=== PATIENT | female | born 1990 | race African-American/Black ===

== ENCOUNTER → 2016-10-28 | Outpatient (CLI) | payer OTHER ==
[~2016-10-28] MED LIST: AZIT250T3 PO; IBUP-232 PO; METR500T10 PO; OXYC1TAB63 PO; PREN1MIS11 PO; SENN1TAB PO
== END ==
LOC: HPND 07:53
PROVIDERS: ATTEND Obstetrics & Gynecology Obstetrics
DX: O35.8XX0 Maternal care for other (suspected) fetal abnormality and damage, not applicable or unspecified (principal)
CPT/HCPCS: 76811

== ENCOUNTER → 2016-12-08 | Outpatient (CLI) | payer OTHER ==
[~2016-12-08] MED LIST changes: -AZIT250T3 PO; -METR500T10 PO
== END ==
LOC: HPND 07:50
PROVIDERS: ATTEND Obstetrics & Gynecology Obstetrics
DX: O99.212 Obesity complicating pregnancy, second trimester (principal); O35.1XX0 Maternal care for (suspected) chromosomal abnormality in fetus, not applicable or unspecified; Z3A.30 30 weeks gestation of pregnancy
CPT/HCPCS: 76816

== ENCOUNTER 2017-01-28 08:55 | Inpatient (IN) | payer OTHER ==
[~2017-01-28] VITALS: Ht 170.2 cm; Wt 132.9 kg
[~2017-01-28 08:55] MED LIST changes: -IBUP-232 PO; -OXYC1TAB63 PO; -SENN1TAB PO
[2017-01-28] MEDS ORDERED: LACTATED RINGER'S 1000 ML INJ 1,000 ML IV PRN (09:33)
[2017-01-28 09:39] VITALS: BP 140/89; PULSE 71
[2017-01-28] MEDS ORDERED: LIDOCAINE HCL 1% 50 ML VIAL INFIL PRN (09:45)
[2017-01-28] MEDS ORDERED: OXYTOCIN 30 UNITS-500ML PREMIX 500 ML IV ONE (09:45)
[2017-01-28] MEDS ORDERED: LIDOCAINE HCL 1% 50 ML VIAL I-DERMAL PRN (09:45)
[2017-01-28] MEDS ORDERED: MINERAL OIL 10 ML VIAL TOPICAL PRN (09:45)
[2017-01-28] MEDS ORDERED: SODIUM CHLORID 0.9% 500 ML INJ 500 ML IV PRN (09:45)
[2017-01-28] MEDS ORDERED: CITRIC ACID-SODIUM CITRATE LIQ 30 ML UDC PO SCH (09:45)
[2017-01-28] MEDS ORDERED: ONDANSETRON HCL 4 MG/2 ML VIAL IV PRN (09:45)
[2017-01-28] MEDS ORDERED: SODIUM CHLOR 0.9% 1000 ML INJ 1,000 ML IV PRN (09:53)
[2017-01-28 09:54] LABS: AUTOMATED NEUTROPHIL # 3.1 TH/MM3 (1.8-7.7); BASOPHIL # 0.1 TH/MM3 (0-0.2); BASOPHIL % 1.1 % (0.0-2.0); EOSINOPHIL % 0.7 % (0.0-4.0); HEMATOCRIT 37.3 % (35.0-46.0); HEMO FLAGS DIFF FINAL; LYMPH % 37.1 % (9.0-44.0); LYMPHOCYTE # 2.1 TH/MM3 (1.0-4.8); MEAN CELL VOLUME 87.5 FL (80.0-100.0); MEAN CORPUSCULAR HEMOGLOBIN 30.1 PG (27.0-34.0); MEAN CORPUSCULAR HGB CONC 34.4 % (32.0-36.0); MONO % 6.7 % (0.0-8.0); NEUT % 54.4 % (16.0-70.0); PLATELET COUNT 185 TH/MM3 (150-450); RED BLOOD COUNT 4.27 MIL/MM3 (4.00-5.30); RED CELL DISTRIBUTION WIDTH 13.4 % (11.6-17.2); WHITE BLOOD COUNT 5.7 TH/MM3 (4.0-11.0)
[2017-01-28] MEDS ORDERED: PENICILLIN G POTASSIUM INJ 5,000,000 UNITS in SODIUM CHLORIDE 0.9% INJ 100 ML IV ONE (10:00)
[2017-01-28 10:01] LABS: BACTERIA, URINE OCC /hpf; BLOOD, URINE NEG (NEG); COMMENT (UR) CULT NOT INDICATED; CULTURE IF INDICATED CULT NOT INDICATED; GLUCOSE,URINE NEG (NEG); KETONE, URINE NEG (NEG); NITRITE,URINE NEG (NEG); PH, URINE 6.5 (5.0-8.5); SQUAMOUS EPITHELIAL CELL URINE 1 /hpf (0-5); URINE COLOR YELLOW (YELLW/STRAW)
--- NOTE | 2017-01-28 10:40 | HHI.HP ---
HPI Chief Complaint Low ESSIE Date Seen: Jan 28, 2017 Travel History International Travel<30 Days: No Contact w/Intl Traveler<30Days: No Known Affected Area: No History of Present Illness HPI Patient is a 26-year-old at 37/3 weeks gestation that presents to the [place] [facility] for low ESSIE. [facility] Today , she states that she is doing well and has no complaints. She denies fever, chills, nausea, vomiting, diarrhea, abdominal pain, shortness of breath. She has had some burning chest pain that is worse when she lies flat and better when she lies upright but not worse with exertion. Patient denies loss of fluid , vaginal bleeding, abnormal vaginal discharge, endorses positive movements. Notably, she is GBS positive. All other labs were negative or within normal limits. Para: 0 : 1 Miscarriage: 0 : 0 History Past Medical History Medical History: Denies Significant Hx Obstetric History Obstetric History Past Surgical History Surgical History: No Previous Surgery Family History Narrative Family History Maternal grandmother has diabetes Social History Alcohol Use: No Tobacco Use: No Substance Abuse: No Allergies-Medications (Allergen,Severity, Reaction): Coded Allergies: No Known Allergies (Verified , 01/27/17) Home Meds Active Scripts W/O Vit A W/ Fe Carbo Pack (Citranatal 90 Dha Pack)90-1 & 300 Mg Pack1 Ea PO DAILY #60 BLISTER Ref 11 30 day supply. Prov:Akilah Shultz 09/23/16 Review of Systems General / Constitutional: No: Fever, Chills HENT: No: Headaches Cardiovascular: Chest Pain or Discomfort (most likely reflux) Respiratory: No: Cough, Short of Breath Gastrointestinal: No: Nausea, Vomiting, Diarrhea, Abdominal Pain Genitourinary: No: Dysuria, Discharge, Vaginal Bleeding Musculoskeletal: No: Weakness Physical Exam Vital Signs Date Time Temp Pulse Resp B/P Pulse Ox O2 Delivery O2 Flow Rate FiO2 01/28/17 09:39 71 140/89 Narrative GENERAL: Well-nourished, well-developed patient. SKIN: Warm and dry. HEAD: Normocephalic and atraumatic. EYES: No scleral icterus. No injection or drainage. ENT: No nasal drainage noted. Mucous membranes pink. Airway patent. NECK: Supple, trachea midline. No JVD. CARDIOVASCULAR: Regular rate and rhythm without murmurs, gallops, or rubs. RESPIRATORY: Breath sounds equal bilaterally. No accessory muscle use. BREASTS: Bilateral exam showed no masses , no retractions, no nipple discharge. ABDOMEN/GI: Abdomen soft, non-tender, bowel sounds present, no rebound, no guarding Gravid to 37 weeks size Fundal Height: 37cm GENITOURINARY: External Genitalia: intact and normal in appearance Cervix: Posterior and high Dilatation: <1cm Effacement: 20% Station: -3 Presentation: Cephalic Membranes: [intact or ruptured] Uterine Contractions: [-] FHT's: Category: 1 Baseline: 145 Reactive: Up to 155 Variability: Moderate Decels: None EXTREMITIES: No cyanosis, minimal edema. BACK: Nontender without obvious deformity. No CVA tenderness. NEUROLOGICAL: Awake and alert. Motor and sensory grossly within normal limits. Five out of 5 muscle strength in all muscle groups. Normal speech. Data Data Vital Signs Reviewed: Yes Orders Admit To Inpatient (01/28/17 ) Code Status (01/28/17 09:33) Vital Signs (Adult) .Per protocol (01/28/17 09:33) ^ Heart (01/28/17 09:33) ^ Amnioinfusion (01/28/17 09:33) Urinary Catheter Management .ONCE (01/28/17 09:33) Lactated Ringer's 1000 Ml Inj (Lr 1000 M (01/28/17 09:33) Lactated Ringer's 1000 Ml Inj (Lr 1000 M (01/28/17 09:33) Sodium Chlorid 0.9% 500 Ml Inj (Ns 500 M (01/28/17 09:45) Sodium Chlor 0.9% 1000 Ml Inj (Ns 1000 M (01/28/17 09:53) Lidocaine 1% Inj (50 Ml) (Xylocaine 1% I (01/28/17 09:45) Citric Acid-Sodium Citrate Liq (Bicitra (01/28/17 09:45) Ondansetron Inj (Zofran Inj) (01/28/17 09:45) Fentanyl Inj (Fentanyl Inj) (01/28/17 09:45) Fentanyl Inj (Fentanyl Inj) (01/28/17 09:45) Penicillin G Potassium Inj (Pfizerpen-G (01/28/17 10:00) Penicillin G Potassium Inj (Pfizerpen-G (01/28/17 14:00) Complete Blood Count With Diff (01/28/17 09:33) Hold Clot (01/28/17 09:33) Abo/Rh Blood Type (01/28/17 09:33) Urinalysis - C+S If Indicated (01/28/17 09:33) Resp Oxygen Non Rebreathe Mask (01/28/17 ) ^ Epidural / Intrathecal Infus (01/28/17 09:33) Oxytocin 30 Units-500ml Premix (Pitocin (01/28/17 09:45) Lidocaine 1% Inj (50 Ml) (Xylocaine 1% I (01/28/17 09:45) Light Mineral Oil (Muri-Lube Oil) (01/28/17 09:45) Inpatient Certification (01/28/17 ) Specimen To Be Collected PRN (01/28/17 09:33) Diet Clear Liquid (01/28/17 Breakfast) Labs Laboratory Tests Test 01/28/17 01/28/17 09:10 09:25 Urine Color YELLOW Urine Turbidity CLEAR Urine pH 6.5 Urine Specific [place] 1.006 Urine Protein NEG Urine Glucose (UA) NEG Urine Ketones NEG Urine Occult Blood NEG Urine Nitrite NEG Urine Bilirubin NEG Urine Urobilinogen LESS THAN 2.0 Urine Leukocyte Esterase LARGE Urine RBC 1 Urine WBC 5 Urine Squamous Epithelial 1 Cells Urine Bacteria OCC Microscopic Urinalysis Comment CULT NOT INDICATED White Blood Count 5.7 Red Blood Count 4.27 Hemoglobin 12.8 Hematocrit 37.3 Mean Corpuscular Volume 87.5 Mean Corpuscular Hemoglobin 30.1 Mean Corpuscular Hemoglobin 34.4 Concent Red Cell Distribution Width 13.4 Platelet Count 185 Mean Platelet Volume 9.4 Neutrophils (%) (Auto) 54.4 Lymphocytes (%) (Auto) 37.1 Monocytes (%) (Auto) 6.7 Eosinophils (%) (Auto) 0.7 Basophils (%) (Auto) 1.1 Neutrophils # (Auto) 3.1 Lymphocytes # (Auto) 2.1 Monocytes # (Auto) 0.4 Eosinophils # (Auto) 0.0 Basophils # (Auto) 0.1 CBC Comment DIFF FINAL Differential Comment Blood Type O POSITIVE Blood Bank Comment Band and Hold Assessment/Plan Assessment and Plan 26-year-old at 37/3 weeks gestation, GBS positive -Intrauterine - tracing category 1, reassuring -Admit to L&D for induction due to low ESSIE -Plan for vaginal delivery -Rangel score of 0 -Cervical ripening with either Cytotec or Cervidil Discharge Planning -Pending induction progress Marilee Delgadillo MD R1 Jan 28, 2017 10:40
--- NOTE | 2017-01-28 12:53 | HHI.HP ---
History & Physical H&P This patient is 26-year-old black female [facility] and sent here for induction for low amniotic fluid volume, she has no complaints problems. heart rate tracing is reactive and occasional contractions are noted. ESSIE was 3.8 maternal medicine recommended induction, biophysical profile was 8 of 10 Exam- cervix is fingertip to closed /50% -3 / vtx an ultrasound done yesterday shows the baby in a cephalic presentation Impressions oligohydramnios at 37-1/2 weeks with the maternal medicine recommendation for delivery. Plan is proceed with cervical ripening and then labor induction. Kenneth Thibodeaux II, MD Jan 28, 2017 12:53
[2017-01-28] MEDS: LACTATED RINGER'S 1000 ML INJ 1,000 ML IV SCH ×2 (13:13→17:33)
[2017-01-28] MEDS: MISOPROSTOL 25 MCG SUPP VAGINAL SCH ×3 (13:13→21:00)
[2017-01-28] MEDS ORDERED: PENICILLIN G POTASSIUM INJ 2,500,000 UNITS in SODIUM CHLORIDE 0.9% INJ 100 ML IV SCH (14:00)
[2017-01-29] VITALS (59 sets, daily range): BP systolic 104–177; BP diastolic 54–136; PULSE 50–129; RESP 18; TEMP 97.3–98; O2SAT 97–99
[2017-01-29] MEDS: MISOPROSTOL 25 MCG SUPP VAGINAL SCH ×2 (01:00→05:00)
[2017-01-29] MEDS: DICLOFENAC SODIUM 37.5 MG/ML VIAL IV PUSH SCH (01:30)
[2017-01-29] MEDS ORDERED: PENICILLIN G POTASSIUM INJ 5,000,000 UNITS in SODIUM CHLORIDE 0.9% INJ 100 ML IV ONE (07:45)
[2017-01-29] MEDS: OXYTOCIN 30 UNITS-500ML PREMIX 500 ML IV SCH (07:48)
[2017-01-29] MEDS: LACTATED RINGER'S 1000 ML INJ 1,000 ML IV SCH ×2 (10:38→17:33)
--- NOTE | 2017-01-29 10:39 | PD.LABORPN ---
Subjective Subjective Patient afebrile with SBP in 140's- 150's overnight. Patient denies complaints at this time Objective Vital Signs Vital Signs Date Time Temp Pulse Resp B/P Pulse Ox O2 Delivery O2 Flow Rate FiO2 01/29/17 10:01 60 147/76 01/29/17 09:44 54 130/82 01/29/17 09:11 61 150/78 01/29/17 09:01 71 01/29/17 08:44 68 01/29/17 08:42 68 Objective Pelvic Exam: (Dr. Thibodeaux 0830 01/29) Cervix: Dilatation: 2-3 cm Effacement: 60% Station: -3 Presentation: V Membranes: AROM 0830 Uterine Contractions: q2 FHT's: Category: 1 Baseline: 150 Reactive: Y Variability:Mod Decels: None Assessment/Plan Problem List: (1) 37 weeks gestation of Assessment and Plan 26 yo G1 at 37 4/7 weeks brought for induction for low ESSIE per MFM -Cervix 2-3/60%/-3 -s/p ROM at 0830 -Cont GBS PPX -Pitocin started 10-26-29 -Continue Jeremi Moore MD R2 Jan 29, 2017 10:39
[2017-01-29] MEDS: PENICILLIN G POTASSIUM INJ 2,500,000 UNITS in SODIUM CHLORIDE 0.9% INJ 100 ML IV SCH ×3 (11:45→20:00)
[2017-01-29] MEDS ORDERED: diphenhydrAMINE HCL 50 MG/ML VIAL IV PUSH ONE (17:45)
--- NOTE | 2017-01-29 17:45 | PD.LABORPN ---
Subjective Subjective Interval History: Per nursing staff and patient, patient reportedly had episode of hypotension ( BP 106/57) after ambulating to the bathroom. Patient had associated decelerations on FHR to ~90's. Patient was placed in LL position, given NC O2, and amnioinfusion started. Pitocin stopped. Following these interventions, patient had recovery in FHR to 140 bpm. Patient seen after these events, states that she is doing well at this time without complaints. It and states that she felt dizzy at time of hypotension but does not feel dizzy at this time. Objective Vital Signs Vital Signs Date Time Temp Pulse Resp B/P Pulse Ox O2 Delivery O2 Flow Rate FiO2 01/29/17 16:32 58 106/57 01/29/17 16:02 66 138/72 01/29/17 15:45 97.5 01/29/17 15:31 75 158/90 01/29/17 15:18 73 01/29/17 15:12 65 01/29/17 14:40 63 154/75 01/29/17 14:32 83 134/104 01/29/17 14:02 68 155/77 01/29/17 13:47 107 150/94 01/29/17 13:41 97.5 01/29/17 13:40 71 01/29/17 12:46 64 147/83 01/29/17 12:42 63 01/29/17 12:02 61 177/85 01/29/17 11:45 97.5 01/29/17 11:45 18 01/29/17 11:32 69 104/69 01/29/17 11:02 72 135/74 01/29/17 10:46 56 148/98 01/29/17 10:15 97.3 18 01/29/17 10:01 60 147/76 01/29/17 09:44 54 130/82 Objective Pelvic Exam: (1640 by nursing staff) Cervix: Dilatation: 6 Effacement: 80% Station: -2 Presentation: V Membranes: Ruptured Uterine Contractions: q2-6min FHT's: Category: 1 Baseline: 140 Reactive: Y Variability: Mod Decels: None current (last was a late 1.5min decel at ~1700 prior to interventions) Assessment/Plan Problem List: (1) 37 weeks gestation of Assessment and Plan 26 yo G1 at 37 4/7 weeks brought for induction for low ESSIE per MFM -Late deceleration in association w/ hypotensive episode Impression: Suspect vagal etiology; resolved after position change, stopping Pit , O2, Amnioinfusion -Continue to monitor EFM -Cervix 6cm dilation -s/p ROM at 0830 -Cont GBS PPX Jeremi Baeza MD R2 Jan 29, 2017 17:45
[2017-01-29] MEDS ORDERED: fentaNYL 2MCG-BUPIV 0.125% INJ 100 ML ONE (20:31)
[2017-01-29] MEDS ORDERED: ePHEDrine/NS 25 MG/5 ML SYR ONE (20:33)
[2017-01-29] MEDS ORDERED: TERBUTALINE INJ 1 MG/ML AMP ONE (22:20)
[2017-01-29] MEDS ORDERED: OXYTOCIN 10 UNIT/ML AMP ONE (22:35)
[2017-01-29] MEDS ORDERED: EPIDURAL-DO NOT ADMINISTER ANTICOAGULANTS PRN (22:45)
[2017-01-29] MEDS ORDERED: EPIDURAL-NALOXONE HCL 0.4 MG/ML AMP IV PRN (22:45)
[2017-01-29] MEDS ORDERED: EPIDURAL-DIPHENHYDRAMINE HCL 50 MG CAP PO PRN (22:45)
[2017-01-29] MEDS ORDERED: EPIDURAL-NO SYSTEMIC NARCOTICS PRN (22:45)
[2017-01-29] MEDS ORDERED: EPIDURAL-DIPHENHYDRAMINE HCL 50 MG/ML VIAL IV PUSH PRN (22:45)
[2017-01-29] MEDS ORDERED: METHYLERGONOVINE MALEATE 0.2 MG/ML VIAL ONE (22:49)
[2017-01-29] MEDS ORDERED: ONDANSETRON HCL 4 MG/2 ML VIAL ONE (23:00)
[2017-01-29] MEDS ORDERED: DICLOFENAC SODIUM 37.5 MG/ML VIAL IV PUSH ONE (23:00)
[2017-01-29] MEDS ORDERED: MORPHINE SULFATE PF 5 MG/10 ML VIAL ONE (23:00)
[2017-01-29 23:08] LABS: BLOOD GAS BASE EXCESS -6.4 mmol/L (-2-2); BLOOD GAS O2 HGB SATURATION 11 % (90-100); CORD BLOOD GAS HCO3 22 mmol/L (21-29); CORD BLOOD GAS PCO2 80 mmHG (34-78); CORD BLOOD GAS PH 7.08 (7.14-7.42); CORD BLOOD GAS PO2 13 mmHG (3.0-40.0); DRAW SITE CORD BLOOD; STAT YES
--- NOTE | 2017-01-29 23:10 | HHI.PR ---
SA[facility]ER Note Note Patient is 37 weeks gestation who was admitted in labor and received an epidural approximately an hour and a half ago. Patient has had slow progression over the past 4 hours, and experienced severe variable decelerations to 60 the past 3 contractions. heart rate tracing came up to baseline of 140 with moderate variability and patient had bradycardia for 3 minutes. Patient was taken back for an emergency section due to bradycardia. Cervix is 6/50/-3. Koki Greer MD Jan 29, 2017 23:10
--- NOTE | 2017-01-29 23:12 | PD.OB.DELI ---
Procedure Note Section Procedure Pre Op Diagnosis 37 weeks gestation bradycardia Failure to progress Post Op Diagnosis: Performed by Koki Greer Procedure: Primary Low Transverse Sec Indication for delivery: Nonreassuring heart tracing Informed consent obtained: For anesthesia, For procedure Confirmed correct: Time-out taken Anesthesia: Epidural Medication prior to procedure: Antacids, Antibiotics, IV Monitoring during procedure: Blood pressure monitoring, Pulse oximetry Urinary catheter: Inserted using sterile technique Sterile preparation: Duraprep Position: Supine with wedge to left side Operative Features Skin Incision: Pfannenstiel Uterine Incision: Low transverse w/knife / blunt ext Membranes Ruptured: Previously Presentation: Occiput anterior Time of : 22:42 Delivery of infant: Uneventful Infant: Male One Minute : 4 Five Minute : 8 Weight: 2665 g, 5 lbs. 14 oz. Status of infant: Viable, Cord blood Placenta delivered: Intact Estimated blood loss: 600 cc Procedure tolerated: Well Maternal Condition: Stable Condition: Stable Koki Greer MD Jan 29, 2017 23:12
--- NOTE | 2017-01-29 23:34 | RADRPT ---
EXAM DATE/TIME: 01/29/2017 23:02 [facility] COMPARISON: No previous studies available for comparison. INDICATIONS : Post emergent section. MEDICAL HISTORY : None. SURGICAL HISTORY : section. ENCOUNTER: Initial ACUITY: 1 day PAIN SCORE: Non-responsive. LOCATION: Abdomen, lower quadrants. FINDINGS: The bowel gas is nonspecific. There are no signs of obstruction or free air for technique. No defini te calcified stones are identified for technique. There is a wire appearing structure overlapping the patient's lumbar spine at the L2-3 level of uncertain location. CONCLUSION: Nonspecific abdomen with a wire appearing structure as above of uncertain locatio n. K. John Orellana MD on January 29, 2017 at 23:32 Board Certified Radiologist. This report was verified electronically.
[2017-01-30] VITALS (12 sets, daily range): BP systolic 118–151; BP diastolic 66–81; PULSE 61–89; RESP 16–18; TEMP 96.7–98.4; O2SAT 99
[2017-01-30] MEDS ORDERED: OXYTOCIN 30 UNITS-500ML PREMIX 500 ML ONE (00:09)
[2017-01-30] MEDS: OXYTOCIN 30 UNITS-500ML PREMIX 500 ML IV SCH (00:23)
[2017-01-30] MEDS ORDERED: SODIUM CHLORIDE 0.9% FLUSH 10 ML FLUSH IV FLUSH PRN (01:45)
[2017-01-30] MEDS ORDERED: ONDANSETRON HCL 4 MG/2 ML VIAL IV PUSH PRN (01:45)
[2017-01-30] MEDS ORDERED: oxyCODONE/ACETAMINOPHEN 5 MG/325 MG TAB PO PRN (01:45)
[2017-01-30] MEDS ORDERED: SIMETHICONE 80 MG CHEWABLE TAB PO PRN (01:45)
[2017-01-30] MEDS ORDERED: OXYTOCIN 30 UNITS-500ML PREMIX 500 ML IV ONE (01:45)
[2017-01-30] MEDS ORDERED: DOCUSATE SODIUM 50 MG/SENNA 8.6 MG TAB PO PRN (01:45)
[2017-01-30] MEDS ORDERED: LACTATED RINGER'S 1000 ML INJ 1,000 ML IV SCH (06:32)
--- NOTE | 2017-01-30 07:08 | HHI.OB ---
Subjective Post Operative Day: 1 Remarks Ms. Mccray is a 26 yo who is POD1 from [facility] (01/29 at 2242). Ms. Quiñones states that she is doing well at this time. Patient has not yet ambulated. Patient plans to bottle feed. Patient denies dysuria. Patient states that she is passing gas. She reports mild vaginal bleeding. Patient denies shortness of breath or leg swelling. (Jeremi Baeza MD R2) Objective Vitals/I&O Vital Signs Date Time Temp Pulse Resp B/P Pulse Ox O2 Delivery O2 Flow Rate FiO2 01/30/17 01:25 96.7 61 18 01/30/17 01:25 119/74 01/30/17 00:10 18 01/30/17 00:10 99 01/30/17 00:10 84 122/66 01/29/17 23:55 75 18 123/65 99 01/29/17 23:40 18 01/29/17 23:40 82 114/61 99 01/29/17 23:25 18 01/29/17 23:25 80 115/59 97 01/29/17 23:10 86 104/62 01/29/17 23:10 98.0 01/29/17 23:10 18 98 01/29/17 22:16 119 145/92 01/29/17 22:02 18 01/29/17 22:01 61 133/66 01/29/17 21:55 18 01/29/17 21:45 18 01/29/17 21:41 73 117/86 01/29/17 21:21 67 146/65 01/29/17 21:19 18 01/29/17 21:17 56 136/54 01/29/17 21:11 129 117/95 01/29/17 21:02 108 143/79 01/29/17 20:55 80 01/29/17 20:53 97.8 75 18 141/76 01/29/17 20:50 75 01/29/17 20:42 63 173/136 01/29/17 20:31 73 166/79 01/29/17 20:15 18 01/29/17 20:01 56 150/80 01/29/17 19:40 97.8 01/29/17 19:39 18 01/29/17 19:38 61 131/97 01/29/17 19:31 76 160/85 01/29/17 19:01 60 158/82 01/29/17 18:32 56 151/86 01/29/17 18:28 56 01/29/17 18:01 56 142/106 01/29/17 17:45 97.9 01/29/17 17:31 61 145/78 01/29/17 17:02 50 138/76 01/29/17 16:32 58 106/57 01/29/17 16:02 66 138/72 01/29/17 15:45 97.5 01/29/17 15:31 75 158/90 01/29/17 15:18 73 01/29/17 15:12 65 01/29/17 14:40 63 154/75 01/29/17 14:32 83 134/104 01/29/17 14:02 68 155/77 01/29/17 13:47 107 150/94 01/29/17 13:41 97.5 01/29/17 13:40 71 01/29/17 12:46 64 147/83 01/29/17 12:42 63 01/29/17 12:02 61 177/85 01/29/17 11:45 97.5 01/29/17 11:45 18 01/29/17 11:32 69 104/69 01/29/17 11:02 72 135/74 01/29/17 10:46 56 148/98 01/29/17 10:15 97.3 18 01/29/17 10:01 60 147/76 01/29/17 09:44 54 130/82 01/29/17 09:11 61 150/78 01/29/17 09:01 71 01/29/17 08:44 68 01/29/17 08:42 68 (Jeremi Baeza MD R2) Result Diagram: 01/31/17 0605 Objective Remarks GENERAL: Well-nourished, well-developed patient. CARDIOVASCULAR: Regular rate and rhythm without murmurs. Normal rate. RESPIRATORY: Breath sounds equal bilaterally. No accessory muscle use. ABDOMEN/GI: Abdomen soft, non-tender, bowel sounds present. Incision: In dressing, not inspected. Fundus: Firm, non-tender at umbilicus. GENITOURINARY: Light to moderate bleeding. EXTREMITIES: No cyanosis or edema, non-tender, without signs of DVT. Medications and IVs Current Medications Medications (Trade) Dose Ordered Sig/Kevyn Route Start Time Stop Time Status Last Admin (Lr 1000 ml Inj) 1,000 ml @ 100 mls/hr Q10H IV 01/30/17 06:32 01/31/17 02:31 (NS Flush) 2 ml BID IV FLUSH 01/30/17 09:00 (NS Flush) 2 ml UNSCH PRN IV FLUSH 01/30/17 01:45 (Mylicon Chew) 80 mg QID PRN PO 01/30/17 01:45 (Motrin) 600 mg Q6H PRN PO 01/30/17 01:45 (Percocet 5-325 Mg) 1 tab Q4H PRN PO 01/30/17 01:45 (Percocet 5-325 Mg) 2 tab Q4H PRN PO 01/30/17 01:45 (Hannah-Colace) 2 tab Q12H PRN PO 01/30/17 01:45 (M-M-R Ii Inj) 0.5 ml ONCE ONCE SQ 01/31/17 16:00 01/31/17 16:01 (Boostrix Inj) 0.5 ml ONCE ONCE IM 01/31/17 16:00 01/31/17 16:01 (Zofran Inj) 4 mg Q6H PRN IV PUSH 01/30/17 01:45 (Dyloject Inj) 37.5 mg Q8H IV PUSH 01/29/17 23:00 01/30/17 15:01 Miscellaneous Information NO SYSTEMIC NARCOTICS TO BE GIVEN FO... UNSCH PRN .XX 01/29/17 22:45 01/30/17 22:44 (Narcan Inj) 0.4 mg UNSCH PRN IV 01/29/17 22:45 01/30/17 22:44 (Benadryl Inj) 25 mg Q6H PRN IV PUSH 01/29/17 22:45 01/30/17 22:44 (Benadryl) 50 mg Q6H PRN PO 01/29/17 22:45 01/30/17 22:44 Miscellaneous Information ALL NURSING DEPARTMENTS UNSCH PRN .XX 01/29/17 22:45 01/30/17 22:44 (Jeremi Baeza MD R2) Assessment/Plan Problem List: (1) care following delivery Assessment and Plan 26 yo who is POD1 from [facility] (01/29 at 2242) -Continue Percocet/Motrin for pain control -Continue to monitor vital signs, vaginal bleeding -Continue to encourage breast-feeding -Continue stool softener -Continue to encourage ambulation -Advance diet as tolerated -Plan for incision check in 1 week/ follow-up Discharge Planning Anticipate DC in 1 -2 days (Jeremi Baeza MD R2) Collaborating MD Comments Agree with care, patient seen and care discussed with resident. (Koki Greer MD ) Jeremi Baeza MD R2 Jan 30, 2017 07:08 Koki Greer MD Feb 03, 2017 10:47
[2017-01-30] MEDS: DICLOFENAC SODIUM 37.5 MG/ML VIAL IV PUSH SCH ×2 (07:47→15:06)
[2017-01-30] MEDS ORDERED: SODIUM CHLORIDE 0.9% FLUSH 10 ML FLUSH IV FLUSH SCH (09:00)
[2017-01-30] MEDS ORDERED: OXYTOCIN 30 UNITS-500ML PREMIX 500 ML IV PRN (11:45)
[2017-01-31] MEDS: IBUPROFEN 600 MG TAB PO PRN ×4 (01:33→21:05)
[2017-01-31] MEDS: oxyCODONE/ACETAMINOPHEN 5 MG/325 MG TAB PO PRN ×4 (01:36→19:59)
[2017-01-31 06:58] LABS: AUTOMATED NEUTROPHIL # 6.5 TH/MM3 (1.8-7.7); BASOPHIL % 0.3 % (0.0-2.0); EOSINOPHIL # 0.1 TH/MM3 (0-0.4); EOSINOPHIL % 0.8 % (0.0-4.0); HEMATOCRIT 38.2 % (35.0-46.0); HEMO FLAGS DIFF FINAL; LYMPH % 20.8 % (9.0-44.0); LYMPHOCYTE # 1.9 TH/MM3 (1.0-4.8); MEAN CELL VOLUME 89.2 FL (80.0-100.0); MEAN CORPUSCULAR HEMOGLOBIN 29.8 PG (27.0-34.0); MEAN CORPUSCULAR HGB CONC 33.4 % (32.0-36.0); MONO % 6.2 % (0.0-8.0); NEUT % 71.9 % (16.0-70.0); PLATELET COUNT 152 TH/MM3 (150-450); RED BLOOD COUNT 4.29 MIL/MM3 (4.00-5.30); RED CELL DISTRIBUTION WIDTH 13.6 % (11.6-17.2)
[2017-01-31 08:00] VITALS: BP 144/89; PULSE 82; RESP 18
--- NOTE | 2017-01-31 09:12 | HHI.OB ---
Subjective Post Operative Day: 2 Remarks Ms. Mccray is a 26 yo who is POD2 from [facility] (01/29 at 2242). Ms. Quiñones states that she is doing well at this time. Patient has been ambulating some. Patient has been bottle feeding her infant. Patient does not report dysuria. Patient states that she is passing gas. She reports mild vaginal bleeding. Patient does not report shortness of breath or leg swelling. Patient has increased appetite today. Per nursing staff, patient requests circumcision for her Lauro. Objective Vitals/I&O Vital Signs Date Time Temp Pulse Resp B/P Pulse Ox O2 Delivery O2 Flow Rate FiO2 01/31/17 08:00 82 18 01/31/17 08:00 144/89 01/30/17 20:00 78 18 118/70 01/30/17 20:00 98.4 01/30/17 18:05 18 01/30/17 16:25 18 01/30/17 15:00 137/67 01/30/17 15:00 97.9 89 18 01/30/17 11:25 18 01/30/17 10:05 16 01/30/17 09:30 18 Result Diagram: 01/31/17 0605 Objective Remarks GENERAL: Well-nourished, well-developed patient. CARDIOVASCULAR: Regular rate and rhythm without murmurs. Normal rate. RESPIRATORY: Breath sounds equal bilaterally. No accessory muscle use. ABDOMEN/GI: Abdomen soft, non-tender, bowel sounds present. Incision: Appears clean/dry without surrounding erythema Fundus: Firm, non-tender at umbilicus. GENITOURINARY: Light bleeding. EXTREMITIES: No cyanosis or edema, non-tender, without signs of DVT. Medications and IVs Current Medications Medications (Trade) Dose Ordered Sig/Kevyn Route Start Time Stop Time Status Last Admin (NS Flush) 2 ml BID IV FLUSH 01/30/17 09:00 01/30/17 07:47 (NS Flush) 2 ml UNSCH PRN IV FLUSH 01/30/17 01:45 01/30/17 15:06 (Mylicon Chew) 80 mg QID PRN PO 01/30/17 01:45 (Motrin) 600 mg Q6H PRN PO 01/30/17 01:45 01/31/17 08:23 (Percocet 5-325 Mg) 1 tab Q4H PRN PO 01/30/17 01:45 01/31/17 08:24 (Percocet 5-325 Mg) 2 tab Q4H PRN PO 01/30/17 01:45 (Hannah-Colace) 2 tab Q12H PRN PO 01/30/17 01:45 (M-M-R Ii Inj) 0.5 ml ONCE ONCE SQ 01/31/17 16:00 01/31/17 16:01 (Boostrix Inj) 0.5 ml ONCE ONCE IM 01/31/17 16:00 01/31/17 16:01 (Zofran Inj) 4 mg Q6H PRN IV PUSH 01/30/17 01:45 Assessment/Plan Problem List: (1) care following delivery Assessment and Plan 26 yo who is POD2 from [facility] (01/29 at 2242) -Continue Percocet/Motrin for pain control -Continue to monitor vital signs, vaginal bleeding -Continue to encourage breast-feeding -Continue stool softener -Continue to encourage ambulation -Advance diet as tolerated -Plan for incision check in 1 week/ follow-up -Plan for circumcision tomorrow Discharge Planning Anticipate DC in tomorrow Jeremi Baeza MD R2 Jan 31, 2017 09:12
[2017-01-31] MEDS ORDERED: MEASLES, MUMPS, RUBELLA VACCINE 0.5 ML VIAL SQ ONE (16:00)
[2017-01-31] MEDS ORDERED: DIPHTH/TETANUS/ACEL PERTUSSIS (BOOSTER) 0.5 ML VIAL/PFS IM ONE (16:00)
[2017-01-31 20:00] VITALS: BP 135/86; PULSE 100; RESP 20; TEMP 97.7
[2017-02-01] MEDS: oxyCODONE/ACETAMINOPHEN 5 MG/325 MG TAB PO PRN (05:39)
[2017-02-01] MEDS: IBUPROFEN 600 MG TAB PO PRN (05:40)
[2017-02-01 07:59] VITALS: BP 149/91; PULSE 89; RESP 18; TEMP 98.5
[2017-02-01] MEDS ORDERED: SENN1TAB PO (08:55)
[2017-02-01] MEDS ORDERED: IBUP-232 PO (08:55)
[2017-02-01] MEDS ORDERED: OXYC1TAB63 PO (08:55)
--- NOTE | 2017-02-01 08:58 | HHI.DCPOC ---
Discharge Care Plan Diagnosis: (1) care following delivery (2) delivery delivered Report Symptoms to Your Doctor -Temperate above 100.5 degrees -Redness, of incision or excessive or foul smelling drainage -Unusual pain or calf pain -Increased vaginal bleeding -Painful or difficulty urinating -Feelings of extreme sadness or anxiety after 2 weeks Goals to Promote Your Health * To prevent worsening of your condition and complications * To maintain your health at the optimal level Directions to Meet Your Goals Take your medications as prescribed Follow your dietary instruction Follow activity as directed Ensure plenty of rest for recovery Drink fluids for hydration Keep your appointments as scheduled Take your immunizations and boosters as scheduled If your symptoms worsen call your PCP, if no PCP go to Urgent Care Center or Emergency Room Smoking is Dangerous to Your Health. Avoid second hand smoke Call the 24-hour crisis hotline for domestic abuse at Rodney Jeffries MD R2 Feb 01, 2017 08:58 Deborah Calle MD Feb 01, 2017 10:05
--- NOTE | 2017-02-01 09:18 | HHI.OB ---
Subjective Post Operative Day: 3 Remarks Patient is doing well this morning. She is ambulating and voiding without difficulty. She is passing gas. Vaginal bleeding within normal limits. [facility] No complaints at this time. No fever, chills , chest pain, shortness of breath. (Rodney Jeffries MD R2) Objective Vitals/I&O Vital Signs Date Time Temp Pulse Resp B/P Pulse Ox O2 Delivery O2 Flow Rate FiO2 02/01/17 07:59 98.5 89 18 149/91 01/31/17 20:00 97.7 100 20 135/86 (Rodney Jeffries MD R2) Result Diagram: 01/31/17 0605 Objective Remarks GENERAL: Well-nourished, well-developed patient. CARDIOVASCULAR: Regular rate and rhythm without murmurs. Normal rate. RESPIRATORY: Breath sounds equal bilaterally. No accessory muscle use. ABDOMEN/GI: Abdomen soft, non-tender, bowel sounds present. Incision: Appears clean/dry without surrounding erythema Fundus: Firm, non-tender at umbilicus. GENITOURINARY: Light bleeding. EXTREMITIES: No cyanosis or edema, non-tender, without signs of DVT. Medications and IVs Current Medications Medications (Trade) Dose Ordered Sig/Kevyn Route Start Time Stop Time Status Last Admin (NS Flush) 2 ml BID IV FLUSH 01/30/17 09:00 01/30/17 07:47 (NS Flush) 2 ml UNSCH PRN IV FLUSH 01/30/17 01:45 01/30/17 15:06 (Mylicon Chew) 80 mg QID PRN PO 01/30/17 01:45 (Motrin) 600 mg Q6H PRN PO 01/30/17 01:45 02/01/17 05:40 (Percocet 5-325 Mg) 1 tab Q4H PRN PO 01/30/17 01:45 02/01/17 05:39 (Percocet 5-325 Mg) 2 tab Q4H PRN PO 01/30/17 01:45 (Hannah-Colace) 2 tab Q12H PRN PO 01/30/17 01:45 (Zofran Inj) 4 mg Q6H PRN IV PUSH 01/30/17 01:45 (Rodney Jeffries MD R2) Assessment/Plan Problem List: (1) care following delivery (2) delivery delivered Assessment and Plan 26 yo who is POD3 from [facility] (01/29 at 2242) -Continue Percocet/Motrin for pain control -Continue to monitor vital signs, vaginal bleeding -Continue to encourage breast-feeding -Continue stool softener -Continue to encourage ambulation -Advance diet as tolerated -Plan for incision check in 1 week/ follow-up -Plan for infant circumcision tomorrow Discussed with Dr. Cabrera Discharge Planning Discharge today (Rodney Jeffries MD R2) Attending Attestation Agree with resident a/p. Remove gelacio prior to d/c. f/u for routine pp visit. currently bottle feeding, enouraged to breastfeed. (Deborah Calle MD) Rodney Jeffries MD R2 Feb 01, 2017 09:18 Deborah Calle MD Feb 01, 2017 10:05
--- NOTE | 2017-02-02 06:49 | MP ---
cc: ALYSSA BLAKE M.D. DATE OF SURGERY 01/29/2017 SURGEON Alyssa Blake MD PREOPERATIVE DIAGNOSES 1. 37 weeks gestation. 2. bradycardia. 3. Failure to progress. POSTOPERATIVE DIAGNOSES 1. 37 weeks gestation. 2. bradycardia. 3. Failure to progress. PROCEDURE Primary low transverse section without extension. ESTIMATED BLOOD LOSS 600 cc. ANESTHETIC Epidural. MEDICATIONS Ancef 2 grams given preoperatively. DRAINS [place] to gravity. PATHOLOGY None. COUNTS Correct x 3. FINDINGS 1. Normal uterus, tubes and ovaries. 2. Clear amniotic fluid. 3. male vertex presentation. Apgars were 4 and 8. weight 5 pounds, 14 ounces, 2665 grams. DESCRIPTION OF PROCEDURE The patient was taken back to the operating room, prepped and draped in the usual sterile fashion, placed in dorsal supine position with a wedge to her left side. This was an emergency section and a Pfannenstiel incision was made through the skin and taken down to the fascia. The fascia was taken off of the muscles using the scalpel and the abdominal muscles were divided bluntly and the anterior peritoneum was entered bluntly. A transverse hysterotomy incision was made, bluntly extended bilaterally. The 's head was delivered to the operative field. Mouth and nares were bulb suctioned. The rest of the body was delivered and handed off to the resuscitation team. Delayed cord clamping was not done due to the status of the baby. The placenta was delivered intact spontaneously and the endometrial cavity was curetted with a moist laparotomy sponge. The hysterotomy incision was repaired using running locking #1 chromic suture with good hemostasis at closure. Gutters were rendered free of all blood and clot material. The patient did have some uterine atony that was treated using a single dose of Methergine in addition to the Pitocin running in through the IV. The muscles were plicated gently together in the midline using #1 chromic and the fascia closed with a #1 PDS in a running fashion. The skin was closed with gelacio. The patient tolerated the procedure well. She was taken back to the recovery room good condition. Alyssa Blake MD LH/[facility] /11:16 PM /6:37 AM
== END 2017-02-01 13:19 | disposition home or self-care (01) | DRG 766 ==
LOC: H2EB 08:55 → H1EA 01-30 01:00
PROVIDERS: ADMIT Obstetrics & Gynecology Obstetrics; ATTEND Obstetrics & Gynecology Obstetrics
PROC: 10D00Z1 Extraction of Products of Conception, Low, Open Approach (ICD-10-PCS; principal; 2017-01-28)
DX: O76 Abnormality in fetal heart rate and rhythm complicating labor and delivery (principal); O99.824 Streptococcus B carrier state complicating childbirth; O32.4XX0 Maternal care for high head at term, not applicable or unspecified; Z37.0 Single live birth; Z3A.37 37 weeks gestation of pregnancy; O62.2 Other uterine inertia
CPT/HCPCS: 59025; 74000; 76818; 81001; 82805; 85025; 86900; 86901; 88307; 90715; J1130; J2210; J2274; J2405; J2540; J2590; J3010; J3105; J7120

== ENCOUNTER 2017-05-05 20:43 | Emergency (ER) | payer OTHER ==
[~2017-05-05] VITALS: Ht 170.2 cm; Wt 125.0 kg
[~2017-05-05 20:43] MED LIST changes: +IBUP-232 PO; +SENN1TAB PO
[2017-05-05 20:44] VITALS: BP 174/88; PULSE 88; RESP 16; TEMP 98.3; O2SAT 100
--- NOTE | 2017-05-05 21:07 | PD ---
Physical Exam Date Seen by Provider: May 05, 2017 Time Seen by Provider: 21:03 Narrative 27 yo female here for evaluation of leg injury. Fell on a hole and has an abrasion to her left calf. No other injuries reported. No head injury. Vitals are stable in triage. Awaiting Bed placement. Data Data Last Documented VS Vital Signs Date Time Temp Pulse Resp B/P Pulse Ox O2 Delivery O2 Flow Rate FiO2 05/05/17 20:44 98.3 88 16 174/88 100 Room Air [facility] Medical Record Reviewed: Yes Supervised Visit with JOSHUA: William Ulloa May 05, 2017 21:07
[2017-05-05] MEDS ORDERED: TETANUS/DIPHTHERIA TOXOID ADULT 0.5 ML VIAL IM ONE (21:15)
[2017-05-05] MEDS ORDERED: MUPI2%T TOPICAL (21:15)
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
== END 2017-05-05 21:50 | disposition home or self-care (01) ==
LOC: NEPK 20:43
DX: S80.812A Abrasion, left lower leg, initial encounter (principal); Z23 Encounter for immunization; W17.2XXA Fall into hole, initial encounter; Y93.01 Activity, walking, marching and hiking; Y92.89 Other specified places as the place of occurrence of the external cause
CPT/HCPCS: 90471; 90714

== ENCOUNTER 2017-07-10 10:54 | Emergency (ER) | payer OTHER ==
[~2017-07-10] VITALS: Ht 170.2 cm; Wt 120.0 kg
[~2017-07-10 10:54] MED LIST changes: +MUPI2%T TOPICAL
[2017-07-10 10:56] VITALS: BP 163/91; PULSE 69; RESP 20; TEMP 98; O2SAT 100
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
== END 2017-07-10 11:18 | disposition left against medical advice (07) ==
LOC: NEPK 10:54
DX: S61.216A Laceration without foreign body of right little finger without damage to nail, initial encounter (principal); X58.XXXA Exposure to other specified factors, initial encounter
CPT/HCPCS: 99281

== ENCOUNTER → 2017-12-28 | Outpatient (CLI) | payer OTHER ==
[~2017-12-28] MED LIST changes: -IBUP-232 PO; -MUPI2%T TOPICAL; +NITR1CAP36 PO; -PREN1MIS11 PO; +PREN1TAB20 PO; -SENN1TAB PO; +TERC0.8C VAGINAL
== END ==
LOC: HPND 09:03
PROVIDERS: ATTEND Obstetrics & Gynecology
DX: O09.292 Supervision of pregnancy with other poor reproductive or obstetric history, second trimester (principal); O99.212 Obesity complicating pregnancy, second trimester; E66.01 Morbid (severe) obesity due to excess calories; Z68.41 Body mass index [BMI] 40.0-44.9, adult
CPT/HCPCS: 76811

== ENCOUNTER → 2018-01-25 | Outpatient (CLI) | payer OTHER | LOC: HPND 09:41 | PROVIDERS: ATTEND Obstetrics & Gynecology | DX: O99.212 Obesity complicating pregnancy, second trimester (principal); E66.01 Morbid (severe) obesity due to excess calories; Z68.41 Body mass index [BMI] 40.0-44.9, adult; O35.1XX0 Maternal care for (suspected) chromosomal abnormality in fetus, not applicable or unspecified | CPT/HCPCS: 76816 ==

== ENCOUNTER → 2018-02-22 | Outpatient (CLI) | payer OTHER | LOC: HPND 10:01 | PROVIDERS: ATTEND Obstetrics & Gynecology | DX: O99.212 Obesity complicating pregnancy, second trimester (principal); E66.01 Morbid (severe) obesity due to excess calories; Z68.41 Body mass index [BMI] 40.0-44.9, adult | CPT/HCPCS: 76816 ==

== ENCOUNTER → 2018-03-23 | Outpatient (CLI) | payer OTHER | LOC: HPND 09:55 | PROVIDERS: ATTEND Obstetrics & Gynecology | DX: O99.213 Obesity complicating pregnancy, third trimester (principal); E66.01 Morbid (severe) obesity due to excess calories; Z68.42 Body mass index [BMI] 45.0-49.9, adult | CPT/HCPCS: 76816 ==

== ENCOUNTER 2018-04-09 12:03 | Emergency (ER) | payer OTHER ==
[~2018-04-09] VITALS: Ht 170.2 cm; Wt 134.0 kg
[2018-04-09 12:14] VITALS: BP 133/64; PULSE 91; RESP 18; TEMP 98.3; O2SAT 99
--- NOTE | 2018-04-09 13:05 | PD ---
HPI Chief Complaint: Musculoskeletal Complaint Time Seen by Provider: 12:26 Travel History International Travel<30 days: No Contact w/Intl Traveler<30days: No Traveled to known affect area: No History of Present Illness HPI Patient is a 27-year-old female presenting to the emergency depart for evaluation of left wrist pain and swelling. Patient states started 1 week ago, she denies any injury or trauma. Patient states it feels stiff. She denies any weakness or numbness. She rates her pain a 3 out of 10. She has not taken any medications to alleviate the pain. Symptoms onset or gradual, symptoms are mild in nature. [facility] Past Medical History Medical History: Denies Significant Hx ?: Not Social History Alcohol Use: No Tobacco Use: No Substance Use: No Allergies-Medications (Allergen,Severity, Reaction): Coded Allergies: No Known Allergies (Verified Adverse Reaction, Unknown, 10/29/17) Reported Meds & Prescriptions Reported Meds & Active Scripts Active Nitrofurantoin Macrocrystal 100 Mg Cap 100 Mg PO QID 7 Days Terconazole Vaginal Cream 0.8 % Cream 1 Appl VAGINAL HS For 3 days. Citranatal Rx ( W/O Vit A W/ Fe Carbonyl) 27-1 Mg Tab 1 Tab PO DAILY Review of Systems Except as stated in HPI: all other systems reviewed are Neg Musculoskeletal: Positive: Myalgias, Edema Physical Exam Narrative GENERAL: Obese, well-developed, alert female. Presenting in no acute distress. SKIN: Warm and dry. HEAD: Normocephalic. EYES: No scleral icterus. No injection or drainage. NECK: Supple, trachea midline. No JVD or lymphadenopathy. CARDIOVASCULAR: Regular rate and rhythm without murmurs, gallops, or rubs. RESPIRATORY: Breath sounds equal bilaterally. No accessory muscle use. GASTROINTESTINAL: Abdomen soft, non-tender, nondistended. MUSCULOSKELETAL: No cyanosis, or edema. No obvious deformity, 2+ radial pulse, brisk less than 3 second capillary refill. 5 out of 5 muscle strength in bilateral upper extremities. No tenderness to palpation palpation of the wrist. BACK: Nontender without obvious deformity. No CVA tenderness. Data Data Last Documented VS Vital Signs Date Time Temp Pulse Resp B/P (MAP) Pulse Ox O2 Delivery O2 Flow Rate FiO2 04/09/18 12:14 98.3 91 18 133/64 (87) 99 MDM Medical Decision Making Medical Screen Exam Complete: Yes Emergency Medical Condition: No Interpretation(s) Vital Signs Date Time Temp Pulse Resp B/P (MAP) Pulse Ox O2 Delivery O2 Flow Rate FiO2 04/09/18 12:14 98.3 91 18 133/64 (87) 99 Differential Diagnosis Strain versus sprain versus spasm versus other Narrative Course Patient presents with 1 week of left wrist pain, there was no injury or trauma, there is no obvious deformity, there is no edema noted. Patient was advised to trial [id number] acetaminophen or ibuprofen as needed and as directed. She was encouraged to apply warm heat to affected area and continue gentle range of motion exercises. Patient was advised to follow-up with a primary doctor at the [facility]. She is further advised to return to emergency department for any new or worsening symptoms A medical screening exam was performed: At the time of evaluation the presenting medical condition was determined not to be of an emergent nature. The patient was given the option of receiving additional care, but declined. Patient was given options for additional community resources from which to obtain care. The Patient Has Been advised to seek medical attention for their presenting complaint. The patient has been advised to return to the ER at any time if an emergent condition develops. Diagnosis Primary Impression: Encounter for medical screening examination Kassi Gotti Apr 09, 2018 13:05
== END 2018-04-09 13:09 | disposition left against medical advice (07) ==
LOC: NEPD 12:03
DX: M25.532 Pain in left wrist (principal)
CPT/HCPCS: 99281

== ENCOUNTER 2018-05-19 00:47 | Inpatient (IN) ==
[2018-05-19] MEDS ORDERED: Lidocaine PF 1% Inj 30 ML Vial ONE (01:15)
[2018-05-19] MEDS ORDERED: Oxytocin 30 Units/500ml Premix 30 UNITS/500 ML BAG ONE (01:16)
--- NOTE | 2018-05-19 01:32 | ED ---
History of Present Illness Primary Care Physician: UNKNOWN Chief Complaint: uterine contractions. History of Present Illness: Patient is a 28 yo at 38.5 weeks. EDC 05-28-2018. Previous C section desiring . Initial c section for NRFHR. Pt states contractions started strong around 15:00 yesterday. On questioning she reports leaking clear fluid at 23:45. Bloody discharge. Active movements. PNC with [facility]. GBS positive. was 4cm in office today. Weeks Gestation:: 38 Para: 1 (C section for NRFHR) : 2 - Inpatient Certification I certify that the inpatient services were ordered in accordance with Medicare regulations governing the order. This includes certification that hospital inpatient services are reasonable and necessary and in the case of services not specified as inpatient-only under 42 CFR 419.22(n), that they are appropriately provided as inpatient services in accordance to with the 2-midnight benchmark under 43 CFR 412.3(e) Review of Systems All other systems reviewed negative except as stated in HPI PMFSH - Medical / Surgical Hx Neg / Unobtainable Medical Problems Denied: Yes Surgical History: No Previous Surgery - Tobacco History Smoking Status: Never smoker - Alcohol History How Often Do You Have a Drink Containing Alcohol: Never - Travel History History of Recent Travel: No Medications and Allergies Allergies Allergy/AdvReac Type Severity Reaction Status Date / Time No Known Allergies Allergy Verified 05/19/18 01:31 Exam Narrative: 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 SVE:8cm/80%/-1 No membranes palpable - Constitutional no acute distress, morbidly obese - Routine HEENT Exam Head: Present: normocephalic Eye: Present: PERRL ENT: Present: mucous membranes moist - Routine Neck Exam Present: supple - Routine Respiratory Exam Present: CTA bilaterally - Routine Cardiovascular Exam Present: RRR - Routine Abdominal Exam Present: soft Results - Labs CBC & Chem 7: 05/19/18 01:30 Group B Strep: Positive Assessment and Plan - Diagnosis (1) Previous section complicating Code(s): O34.219 - Maternal care for unspecified type scar from previous delivery Status: Acute Plan: patient plans (2) 38 weeks gestation of Code(s): Z3A.38 - 38 weeks gestation of Status: Acute (3) GBS carrier Code(s): Z22.330 - Carrier of Group B streptococcus Status: Acute (4) SROM (spontaneous rupture of membranes) Status: Acute Discharge Plan - Discharge Disposition Patient Disposition: 30 Still Patient - Discharge Condition Condition: Stable - Discharge Details Diagnosis: History of delivery affecting , 38 weeks gestation of , SROM (spontaneous rupture of membranes), GBS carrier, Admitted to labor and delivery - Physicians Team ED Provider: Jay Jay Mcmahon Primary Care Provider: UNKNOWN,
[2018-05-19] MEDS ORDERED: Sodium Chlor 0.9% Inj 500 ML IV.SIG PRN (01:34)
[2018-05-19] MEDS ORDERED: Penicillin G Potassium Inj 5,000,000 UNIT in Sodium Chloride 0.9% Inj 100 ML IV.SIG ONE (01:34)
[2018-05-19] MEDS ORDERED: Oxytocin 30 Units/500ml Premix 30 UNITS/500 ML BAG IV.SIG ONE (01:34)
[2018-05-19] MEDS ORDERED: fentaNYL Citrate Inj 100 MCG/2 ML Ampul IV.PUSH PRN ×2 (01:34)
[2018-05-19] MEDS ORDERED: Sod Chloride 0.9% Inj 1,000 ML IV.CONT PRN (01:34)
[2018-05-19] MEDS ORDERED: Naloxone Inj 0.4 MG/ML Vial IV.PUSH PRN (01:34)
--- NOTE | 2018-05-19 01:40 | P.HPOB ---
History of Present Illness Primary Care Physician: UNKNOWN Chief Complaint: uterine contractions. History of Present Illness: Patient is a 28 yo AA female who presented to OB ED at 41 weeks and c/ o uterine contractions and leaking fluid. EDC 05-12-2018. Patient states she started leaking fluid around 23:15. Fluid was clear. She states that she started with strong contractions 15:00. Active movements. GBS was positive Pt had previous C Section at 37 weeks for NRFHR. She desires . EFW by [facility] is 7lbs. Pelvic feels adequate. Pt was checked and found to be 8 cm dilated. Patient is being admitted for active labor. Weeks Gestation:: 38 Para: 1 : 2 - Inpatient Certification I certify that the inpatient services were ordered in accordance with Medicare regulations governing the order. This includes certification that hospital inpatient services are reasonable and necessary and in the case of services not specified as inpatient-only under 42 CFR 419.22(n), that they are appropriately provided as inpatient services in accordance to with the 2-midnight benchmark under 43 CFR 412.3(e) Estimated Total Length of Stay (Days): 3 Plans for Post Hospital Care: Home Review of Systems All other systems reviewed negative except as stated in HPI PMFSH - Medical / Surgical Hx Neg / Unobtainable Medical Problems Denied: Yes - Surgical History Surgical History: Surgical History (Last Updated 05/19/18 @ 06:15 by Jay Jay Mcmahon MD) Previous section - Tobacco History Tobacco Use In Past 30 Days: No Smoking Status: Never smoker - Alcohol History How Often Do You Have a Drink Containing Alcohol: Never - Travel History History of Recent Travel: No Medications and Allergies Active Medications: Active Medications Citric Acid/Sodium Citrate (Sodium Citrate/Citric Acid Liq) 30 ml PO [employer] [facility] Stop: 05/23/18 01:44 Fentanyl Citrate (Fentanyl Inj) 50 mcg IV.PUSH Q1H PRN PRN Reason: Pain Scale 3 - 5 Fentanyl Citrate (Fentanyl Inj) 100 mcg IV.PUSH Q1H PRN PRN Reason: PAIN SCALE 6 TO 10 Lactated Ringer's (Lr 1000 Ml Inj) 1,000 mls @ 125 mls/hr IV.CONT .Q8H [facility] Lactated Ringer's (Lr 1000 Ml Inj) 1,000 mls @ 3,000 mls/hr IV.SIG UNSCH PRN PRN Reason: compromise or epidural Sodium Chloride (Ns Inj) 500 mls @ 1,000 mls/hr IV.SIG UNSCH PRN PRN Reason: SEE LABEL COMMENTS Sodium Chloride (Ns Inj) 1,000 mls @ 100 mls/hr IV.CONT .Q10H PRN PRN Reason: SEE LABEL COMMENTS Oxytocin (Pitocin 30 Units/Ns 500 Ml Premix) 30 units in 500 mls @ 999 mls/hr IV.SIG BOLUS ONE Stop: 05/19/18 02:04 Penicillin G Potassium 5,000, (000 unit/ Sodium Chloride) 100 mls @ 200 mls/hr IV.SIG ONCE ONE Stop: 05/19/18 02:03 Penicillin G Potassium 2,500, (000 unit/ Sodium Chloride) 100 mls @ 200 mls/hr IV.SIG Q4H GURVINDER Lidocaine HCl (Xylocaine 1% Inj) 0.1 ml I-DERMAL PRN PRN PRN Reason: For IV start Stop: 05/22/18 01:33 Lidocaine HCl (Xylocaine 1% Inj) 10 ml INFILTRATN PRN PRN PRN Reason: For episiotomy repair Stop: 05/21/18 01:33 Mineral Oil (Muri-Lube Oil) 10 ml TOPICAL PRN PRN PRN Reason: PRN perineal massage Naloxone HCl (Narcan Inj) 0.1 mg IV.PUSH Q2M PRN PRN Reason: for opiate reversal Allergies Allergy/AdvReac Type Severity Reaction Status Date / Time No Known Allergies Allergy Verified 05/19/18 01:31 Exam Vital signs: Vital Signs 05/19/18 01:10 05/19/18 01:35 05/19/18 01:38 Temperature 98.9 F Pulse Rate 84 77 Respiratory Rate 18 Blood Pressure 151/88 H Intake & Output 05/18/18 05/18/18 05/19/18 06:59 18:59 06:59 Weight 132.903 kg Narrative: FHR 130s baseline, accelerations noted, no decelerations, Cat I TOCO every 2 minutes SVE 8cm/80% effaced/ -1 station, soft. - Constitutional no acute distress - Routine HEENT Exam Head: Present: normocephalic Eye: Present: PERRL ENT: Present: mucous membranes moist - Routine Neck Exam Present: supple - Routine Respiratory Exam Present: CTA bilaterally - Routine Cardiovascular Exam Present: RRR - Routine Abdominal Exam Present: soft - Routine Neurological Exam Present: alert, oriented X3, CN II-XII intact Results - Labs CBC & Chem 7: 05/19/18 01:30 Group B Strep: Positive Caprini VTE Risk Assessment Caprini VTE Risk Assessment: No/Low Risk (score <= 1) Caprini Risk Assessment Model: Point Value = 1 Point Value = 2 Point Value = 3 Point Value = 5 Age 41-60 Minor surgery BMI > 25 kg/m2 Swollen legs Varicose veins or History of unexplained or recurrent spontaneous Oral contraceptives or hormone replacement Sepsis (< 1 month) Serious lung disease, including pneumonia (< 1 month) Abnormal pulmonary function Acute myocardial infarction Congestive heart failure (< 1 month) History of inflammatory bowel disease Medical patient at bed rest Age 61-74 Arthroscopic surgery Major open surgery (> 45 min) Laparoscopic surgery (> 45 min) Malignancy Confined to bed (> 72 hours) Immobilizing plaster cast Central venous access Age >= 75 History of VTE Family history of VTE Factor V Leiden Prothrombin [id number] Lupus anticoagulant Anticardiolipin antibodies Elevated serum homocysteine Heparin-induced thrombocytopenia Other congenital or acquired thrombophilia Stroke (< 1 month) Elective arthroplasty Hip, pelvis, or leg fracture Acute spinal cord injury (< 1 month) Prophylaxis Regimen: Total Risk Factor Score Risk Level Prophylaxis Regimen 0-1 Low Early ambulation 2 Moderate Order ONE of the following: *Sequential Compression Device (SCD) *Heparin 5000 units SQ BID 3-4 Higher Order ONE of the following medications: *Heparin 5000 units SQ TID *Enoxaparin/Lovenox 40 mg SQ daily (WT < 150 kg, CrCl > 30 mL/min) *Enoxaparin/Lovenox 30 mg SQ daily (WT < 150 kg, CrCl > 10-29 mL/min) *Enoxaparin/Lovenox 30 mg SQ BID (WT < 150 kg, CrCl > 30 mL/min) AND/OR *Sequential Compression Device (SCD) 5 or more Highest Order ONE of the following medications: *Heparin 5000 units SQ TID (Preferred with Epidurals) *Enoxaparin/Lovenox 40 mg SQ daily (WT < 150 kg, CrCl > 30 mL/min) *Enoxaparin/Lovenox 30 mg SQ daily (WT < 150 kg, CrCl > 10-29 mL/min) *Enoxaparin/Lovenox 30 mg SQ BID (WT < 150 kg, CrCl > 30 mL/min) AND *Sequential Compression Device (SCD) Assessment and Plan - Diagnosis (1) Previous section complicating Code(s): O34.219 - Maternal care for unspecified type scar from previous delivery Status: Acute Plan: patient plans (2) 38 weeks gestation of Code(s): Z3A.38 - 38 weeks gestation of Status: Acute (3) GBS carrier Code(s): Z22.330 - Carrier of Group B streptococcus Status: Acute (4) SROM (spontaneous rupture of membranes) Status: Acute
[2018-05-19] MEDS ORDERED: Citric Acid/Sodium Citrate Liq 30 ML UDC PO SCH (01:45)
[2018-05-19 01:48] LABS: Baso % (Auto) 0.4 % (0.0-2.0); Eos % (Auto) 0.1 % (0.0-4.0); Hematocrit 40.2 % (35.0-46.0); Hemoglobin 13.9 gm/dL (11.6-15.3); Lymph # (Auto) 1.4 th/mm3 (1.0-4.8); Lymph % (Auto) 13.1 % (9.0-44.0); Mean Corpuscular HGB Conc 34.4 % (32.0-36.0); Mean Corpuscular Hemoglobin 30.2 pg (27.0-34.0); Mean Corpuscular Volume 87.6 fL (80.0-100.0); Mean Platelet Volume 9.3 fL (7.0-11.0); Mono # (Auto) 0.4 th/mm3 (0.0-0.9); Mono % (Auto) 3.5 % (0.0-8.0); Neut % (Auto) 82.9 % (16.0-70.0); Platelet Count 175 th/mm3 (150-450); Red Blood Count 4.59 mil/mm3 (4.00-5.30); Red Cell Distribution Width 13.1 % (11.6-17.2); White Blood Count 10.9 th/mm3 (4.0-11.0)
[2018-05-19] MEDS ORDERED: Ibuprofen 400 MG Tablet PO PRN (02:28)
[2018-05-19] MEDS ORDERED: Witch Hazel 50%/Glyderin 12.5% 40 Pad Jar RECTAL PRN (02:28)
[2018-05-19] MEDS ORDERED: Zolpidem Tartrate 5 MG Tablet PO PRN (02:28)
[2018-05-19] MEDS ORDERED: Benzocaine 20% Top Spray 60 ML Can TOPICAL PRN (02:28)
[2018-05-19] MEDS ORDERED: Acetaminophen 325 MG Tablet PO PRN (02:28)
[2018-05-19] MEDS ORDERED: Bisacodyl 10 MG Supp RECTAL PRN (02:28)
[2018-05-19 02:30] LABS: Amphetamine Urine With Conf Neg (Neg); Benzodiazepine Urine With Conf Neg (Neg)
[2018-05-19] MEDS ORDERED: Oxytocin 30 Units/500ml Premix 30 UNITS/500 ML BAG IV.CONT SCH (02:30)
--- NOTE | 2018-05-19 02:38 | P.OBDELI ---
Weeks Gestation: 38 Patient Started Active Labor: Yes Active Labor Start Date: 05/18/18 Active Labor Start Time: 15:00 Medical Induction of Labor: No Anesthesia: None Episiotomy: none Vaginal Delivery: Spontaneous, Presentation: Occiput anterior Nuchal Cord: None Delayed Cord Clamping (45 sec): Yes Placenta: Spontaneous delivery, Intact, 3 vessel cord Laceration: Perineal, 2 deg Repair: Vicryl interrupted Estimated blood loss (mL): 150 Infant: Male Male A Infant Delivery Date: 05/19/18 Delivery Time: 01:48 Weight: 2910 kg score (1 min): 8 score (5 min): 9
[2018-05-19] MEDS ORDERED: Penicillin G Potassium Inj 2,500,000 UNIT in Sodium Chlor 0.9% Inj 100 ML IV.SIG SCH (05:37)
[2018-05-19] MEDS ORDERED: Diphtheria/Tetanus/Pertussis Vaccine Inj 0.5 ML Syringe IM ONE (16:00)
[2018-05-19] MEDS ORDERED: Measles/Mumps/Rubella Vaccine Inj 0.5 ML Vial SQ ONE (16:00)
[2018-05-19] MEDS: Senna/Docusate Sodium 8.6/50 MG Tablet PO SCH (21:50)
--- NOTE | 2018-05-20 08:12 | P.PNOB ---
Subjective Interval history: Patient is a 28-year-old delivered at 38 weeks and 5 days. Patient is day 1 after . Patient's pain is well-controlled. Patient reports eating and drinking without any nausea or vomiting. Patient reports minimal bleeding. Patient has passed gas and bowel movements. Patient is walking without lower extremity pain or shortness of breath. Patient reports desire for contraception. Objective Vital Signs/I&O: Vital Signs 05/19/18 20:00 Temperature 97.8 F Pulse Rate 82 Respiratory Rate 20 Blood Pressure 112/69 Result Diagrams: 05/19/18 01:30 Objective Remarks: GENERAL: Well-nourished, well-developed patient. CARDIOVASCULAR: Regular rate and rhythm without murmurs, gallops, or rubs. RESPIRATORY: Breath sounds equal bilaterally. No accessory muscle use. ABDOMEN/GI: Abdomen soft, non-tender. Fundus: Firm, non-tender at umbilicus. GENITOURINARY: Light to moderate bleeding. EXTREMITIES: No cyanosis or edema, non-tender, without signs of DVT. Medications and IVs: Active Medications Acetaminophen (Tylenol) 650 mg PO Q4H PRN PRN Reason: PAIN SCALE 1 TO 2 Al Hydroxide/Mg Hydroxide (Milk Of Magnesia Liq) 30 ml PO Q12H PRN PRN Reason: Mild Constipation Benzocaine (Americaine 20% Top [place]) 1 spray TOPICAL Q4H PRN PRN Reason: For Perineum Discomfort Last Admin: 05/19/18 04:09 Dose: 1 spray Bisacodyl (Dulcolax Supp) 10 mg RECTAL DAILY PRN PRN Reason: SEVERE CONSITIPATION Citric Acid/Sodium Citrate (Sodium Citrate/Citric Acid Liq) 30 ml PO PHLEBOTOMY COORDINATOR [facility] Stop: 05/23/18 01:44 Fentanyl Citrate (Fentanyl Inj) 50 mcg IV.PUSH Q1H PRN PRN Reason: Pain Scale 3 - 5 Fentanyl Citrate (Fentanyl Inj) 100 mcg IV.PUSH Q1H PRN PRN Reason: PAIN SCALE 6 TO 10 Lactated Ringer's (Lr 1000 Ml Inj) 1,000 mls @ 125 mls/hr IV.CONT .Q8H [facility] Lactated Ringer's (Lr 1000 Ml Inj) 1,000 mls @ 3,000 mls/hr IV.SIG UNSCH PRN PRN Reason: compromise or epidural Sodium Chloride (Ns Inj) 500 mls @ 1,000 mls/hr IV.SIG UNSCH PRN PRN Reason: SEE LABEL COMMENTS Sodium Chloride (Ns Inj) 1,000 mls @ 100 mls/hr IV.CONT .Q10H PRN PRN Reason: SEE LABEL COMMENTS Penicillin G Potassium 2,500, (000 unit/ Sodium Chloride) 100 mls @ 200 mls/hr IV.SIG Q4H [facility] Ibuprofen (Motrin) 800 mg PO Q8H PRN PRN Reason: For cramping Last Admin: 05/19/18 02:40 Dose: 800 mg Lactulose (Lactulose Liq) 30 ml PO DAILY PRN PRN Reason: SEVERE CONSITIPATION Lidocaine HCl (Xylocaine 1% Inj) 0.1 ml I-DERMAL PRN PRN PRN Reason: For IV start Stop: 05/22/18 01:33 Lidocaine HCl (Xylocaine 1% Inj) 10 ml INFILTRATN PRN PRN PRN Reason: For episiotomy repair Stop: 05/21/18 01:33 Mineral Oil (Muri-Lube Oil) 10 ml TOPICAL PRN PRN PRN Reason: PRN perineal massage Naloxone HCl (Narcan Inj) 0.1 mg IV.PUSH Q2M PRN PRN Reason: for opiate reversal Ondansetron HCl (Zofran Odt) 4 mg PO Q6H PRN PRN Reason: NAUSEA OR VOMITING Senna/Docusate Sodium (Hannah-Colace) 1 tab PO BID [facility] Last Admin: 05/19/18 21:50 Dose: Not Given Sennosides (Senokot) 17.2 mg PO Q12H PRN PRN Reason: Moderate Constipation Sodium Chloride (Ns Flush) 2 ml IV.FLUSH PRN PRN PRN Reason: FLUSH AFTER USING IV ACCESS Witch Bree/Glycerin (Tucks Pads) 1 applicatio RECTAL QID PRN PRN Reason: HEMORRHOIDS Zolpidem Tartrate (Ambien) 5 mg PO HS PRN PRN Reason: SLEEP Assessment and Plan - Plan Patient is a 28-year-old delivered at 38 weeks and 5 days. Patient is day 1 after . Patient was counseled to do 6 weeks of pelvic rest. Patient was counseled to follow up in 6 weeks. Patient requested follow-up and contraception. --AF VSS --Continue routine care --Motrin and Tylenol when necessary for pain --Encourage OOB --Pelvic rest for 6 weeks will need follow-up appointment at that time. --Contraception: Will arrange as outpatient --Anticipate discharge tomorrow
--- NOTE | 2018-05-21 08:28 | P.PNOB ---
Subjective Post day: 2 Interval history: Patient is a 28-year-old delivered at 38 weeks and 5 days. Patient is day 2 after . Patient's pain is well-controlled. Patient reports eating and drinking without any nausea or vomiting. Patient reports minimal bleeding. Patient has passed gas and bowel movements. Patient is walking without lower extremity pain or shortness of breath. Patient will arrange for contraception as an outpatient. Objective Vital Signs/I&O: Vital Signs 05/20/18 20:00 05/21/18 00:00 05/21/18 08:00 Temperature 98.4 F 98.3 F 98.2 F Pulse Rate 108 H 67 86 Respiratory Rate 18 Blood Pressure 152/91 H 119/68 125/84 Result Diagrams: 05/19/18 01:30 Objective Remarks: GENERAL: Well-nourished, well-developed patient. CARDIOVASCULAR: Regular rate and rhythm without murmurs, gallops, or rubs. RESPIRATORY: Breath sounds equal bilaterally. No accessory muscle use. ABDOMEN/GI: Abdomen soft, non-tender. Fundus: Firm, non-tender at umbilicus. GENITOURINARY: Light to moderate bleeding. EXTREMITIES: No cyanosis or edema, non-tender, without signs of DVT. Medications and IVs: Active Medications Acetaminophen (Tylenol) 650 mg PO Q4H PRN PRN Reason: PAIN SCALE 1 TO 2 Al Hydroxide/Mg Hydroxide (Milk Of Magnesia Liq) 30 ml PO Q12H PRN PRN Reason: Mild Constipation Benzocaine (Americaine 20% Top [place]) 1 spray TOPICAL Q4H PRN PRN Reason: For Perineum Discomfort Last Admin: 05/19/18 04:09 Dose: 1 spray Bisacodyl (Dulcolax Supp) 10 mg RECTAL DAILY PRN PRN Reason: SEVERE CONSITIPATION Citric Acid/Sodium Citrate (Sodium Citrate/Citric Acid Liq) 30 ml PO [facility] Stop: 05/23/18 01:44 Fentanyl Citrate (Fentanyl Inj) 50 mcg IV.PUSH Q1H PRN PRN Reason: Pain Scale 3 - 5 Fentanyl Citrate (Fentanyl Inj) 100 mcg IV.PUSH Q1H PRN PRN Reason: PAIN SCALE 6 TO 10 Lactated Ringer's (Lr 1000 Ml Inj) 1,000 mls @ 125 mls/hr IV.CONT .Q8H [facility] Lactated Ringer's (Lr 1000 Ml Inj) 1,000 mls @ 3,000 mls/hr IV.SIG UNSCH PRN PRN Reason: compromise or epidural Sodium Chloride (Ns Inj) 500 mls @ 1,000 mls/hr IV.SIG UNSCH PRN PRN Reason: SEE LABEL COMMENTS Sodium Chloride (Ns Inj) 1,000 mls @ 100 mls/hr IV.CONT .Q10H PRN PRN Reason: SEE LABEL COMMENTS Penicillin G Potassium 2,500, (000 unit/ Sodium Chloride) 100 mls @ 200 mls/hr IV.SIG Q4H [facility] Ibuprofen (Motrin) 800 mg PO Q8H PRN PRN Reason: For cramping Last Admin: 05/19/18 02:40 Dose: 800 mg Lactulose (Lactulose Liq) 30 ml PO DAILY PRN PRN Reason: SEVERE CONSITIPATION Lidocaine HCl (Xylocaine 1% Inj) 0.1 ml I-DERMAL PRN PRN PRN Reason: For IV start Stop: 05/22/18 01:33 Mineral Oil (Muri-Lube Oil) 10 ml TOPICAL PRN PRN PRN Reason: PRN perineal massage Naloxone HCl (Narcan Inj) 0.1 mg IV.PUSH Q2M PRN PRN Reason: for opiate reversal Ondansetron HCl (Zofran Odt) 4 mg PO Q6H PRN PRN Reason: NAUSEA OR VOMITING Senna/Docusate Sodium (Hannah-Colace) 1 tab PO BID [facility] Last Admin: 05/19/18 21:50 Dose: Not Given Sennosides (Senokot) 17.2 mg PO Q12H PRN PRN Reason: Moderate Constipation Sodium Chloride (Ns Flush) 2 ml IV.FLUSH PRN PRN PRN Reason: FLUSH AFTER USING IV ACCESS Witch Bree/Glycerin (Tucks Pads) 1 applicatio RECTAL QID PRN PRN Reason: HEMORRHOIDS Zolpidem Tartrate (Ambien) 5 mg PO HS PRN PRN Reason: SLEEP Assessment and Plan - Diagnosis (1) , delivered, current hospitalization Code(s): O34.219 - Maternal care for unspecified type scar from previous delivery Status: Acute Plan: routine pp care d/c home - Plan Patient is a 28-year-old delivered at 38 weeks and 5 days. Patient is day 2 after . Patient was counseled to do 6 weeks of pelvic rest. Patient was counseled to follow up in 6 weeks. Patient requested follow-up and contraception. --AF VSS --Continue routine care --Motrin and Tylenol when necessary for pain --Encourage OOB --Pelvic rest for 6 weeks will need follow-up appointment at that time. --Contraception: Will arrange as outpatient --Anticipate discharge today - Attending Attestation The exam, history, and the medical decision-making described in the above note were completed with the assistance of the resident physician. I reviewed and agree with the findings presented. I attest that I had a [id number] encounter with the patient on the same day.
[2018-05-21] MEDS: Senna/Docusate Sodium 8.6/50 MG Tablet PO SCH (08:46)
== END 2018-05-21 14:03 | disposition home or self-care (01) ==
LOC: HOBED 00:47 → H2E 01:14 → H1EA 04:18
PROVIDERS: ADMIT Obstetrics & Gynecology; ATTEND Obstetrics & Gynecology